=== PATIENT | male | born 1995 | race Caucasian/White ===

== ENCOUNTER 2022-06-24 04:44 | Emergency (ER) | payer OTHER, SELFPAY ==
[2022-06-24 04:46] VITALS: BP 142/112; PULSE 91; RESP 16; TEMP 36.6; O2SAT 98; BMI 36.9
--- NOTE | 2022-06-24 04:51 | EKG12_ITS ---
Test Reason : DYSRHYTHMIA Blood Pressure : / mmHG Vent. Rate : 092 BPM Atrial Rate : 092 BPM P-R Int : 162 ms QRS Dur : 100 ms QT Int : 372 ms P-R-T Axes : 018 052 046 degrees QTc Int : 460 ms Normal sinus rhythm Normal ECG Confirmed by AMILCAR FRANCIS, FLO ([id number]), manager editorial KEN MCLEAN ([id number]) on 06/27/2022 7:53:58 AM Referred By: CHLOE Confirmed By:FLO FITZGERALD MD
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
[2022-06-24 05:02] LABS: Absolute Lymphocyte Count 1.86 X10^3/uL (0.83-4.51); Absolute Neutrophil Count 12.7 X10^3/uL (2.0-7.7); Basophil# 0.04 X10^3/uL; Basophil% 0.3 % (0-1); Eosinophil# 0.02 X10^3/uL; Eosinophils% 0.1 % (0-5); Hematocrit 46.5 % (40-54); Hemoglobin 15.6 g/dL (13.0-16.5); Lymphocyte # 1.86 X10^3/ul (0.83-4.51); Lymphocyte % 11.9 % (19-41); Mean Corp Hgb Conc 33.5 g/dL (32-36); Mean Corpuscular Hgb 28.8 pg (27.0-32.0); Mean Platelet Vol. 9.8 fl (6.2-12.0); Monocyte# 0.83 X10^3/uL; Monocyte% 5.3 % (0-10); NRBC Flagged by Analyzer 0 % (0-5); Neutrophil # 12.74 X10^3/uL (2.7-7.7); Neutrophil % 81.9 % (47-70); Platelet Count 242 K/mm3 (150-450); RBC Distribution Width CV 12.9 % (11.6-14.6); RBC Distribution Width SD 39.9 fl (35.1-43.9); Red Blood Count 5.41 M/mm3 (4.6-6.2); White Blood Count 15.6 K/mm3 (4.4-11.0)
[2022-06-24] MEDS: 0.9% Normal Saline 1,000 ML 999 ML IV (05:02)
[2022-06-24] MEDS: fentaNYL 100 MCG/2 ML Ampul 25 MCG IV (05:02)
[2022-06-24] MEDS: Ondansetron 4 MG/2 ML Vial IV (05:02)
[2022-06-24 05:15] LABS: Anion Gap 9 (5-15); BUN 11 mg/dL (7-18); BUN/Creat Ratio 12.2 RATIO (10-20); Calcium,Total 7.9 mg/dL (8.5-10.1); Chloride 110 mmol/L (98-107); EST Glomerular Filtration Rate 108 mL/min (>60); Est Glom Filt Rate - Afr Amer 131 mL/min (>60); Estimated Creatinine Clearance 137.72 ml/min; Glucose 105 mg/dL (74-106); Potassium 3.6 mmol/L (3.5-5.1); Sodium Level 142 mmol/L (136-145)
[2022-06-24 05:53] VITALS: BP 141/86; PULSE 99; RESP 23; O2SAT 96
[2022-06-24 06:00] VITALS: BP 144/76; PULSE 101; RESP 23; O2SAT 95
[2022-06-24 06:03] LABS: CPK Total, Creatine Kinase 245 U/L (39-308)
[2022-06-24 07:00] VITALS: BP 145/70; PULSE 101; RESP 20; O2SAT 95
[2022-06-24 07:03] VITALS: BP 145/70; PULSE 101; RESP 25; TEMP 36.6; O2SAT 96
--- NOTE | 2022-06-24 07:09 | NURSING ---
CALLED ANT[facility]LL[facility] FOR AN UPDATE. NO ONE ENROUTE
--- NOTE | 2022-06-24 07:12 | NURSING ---
ANTONELLA LYMAN, CALLED. [facility] WILL BE HERE IN 20 MIN OR LESS
[2022-06-24 07:21] LABS: Bacteria 0 SEEN /hpf (None Seen); Mucous, Urine 0 SEEN /hpf (<or=2+); Red Blood Cells-Urine 0 SEEN /hpf (0-5); Squamous Epithelial Cells - UA 0 SEEN /hpf (0-5); White Blood Cells 0 SEEN /hpf (0-5)
[2022-06-24 07:23] LABS: Color, Urine Yellow (Yellow); Glucose, Dipstick Normal (Normal); Ketone-Dipstick 5 mg/dl (Negative); Leukocyte Esterase-Dipstick Negative /ul (Negative); Nitrite-Dipstick Negative (Negative); Occult Blood-Urine Negative /ul (Negative); Protein-Dipstick 15 mg/dl (Negative); Specific Gravity, Urine 1.015 (1.002-1.030); Urine Bilirubin Dipstick Negative (Negative); Urine Clarity Clear (Clear); Urine Urobilinogen Normal (Normal)
[2022-06-24 12:21] LABS: Amphetamine Urine VISTA NEGATIVE (<1000 ng/mL); Barbiturate Urine VISTA NEGATIVE (< 200 ng/mL); Benzodiazepine Urine VISTA NEGATIVE (< 200 ng/mL); Cocaine Urine VISTA NEGATIVE (< 300 ng/mL); Ecstacy Urine VISTA NEGATIVE (< 500 ng/mL); Methadone Urine VISTA NEGATIVE (< 300 ng/mL); PCP Urine VISTA NEGATIVE (< 25 ng/mL); THC Urine VISTA NEGATIVE (< 50 ng/mL); Vista UDS pH Range 5
== END 2022-06-24 07:31 | disposition short-term general hospital (02) ==
LOC: ED 05:46
PROVIDERS: Emergency Provider Student in an Organized Health Care Education/Training Program; Visit Provider Student in an Organized Health Care Education/Training Program
DX: S01.01XA Laceration without foreign body of scalp, initial encounter (principal); F10.129 Alcohol abuse with intoxication, unspecified; T79.7XXA Traumatic subcutaneous emphysema, initial encounter; D72.829 Elevated white blood cell count, unspecified; M25.551 Pain in right hip; S20.229A Contusion of unspecified back wall of thorax, initial encounter; K04.7 Periapical abscess without sinus; V86.55XA Driver of 3- or 4- wheeled all-terrain vehicle (ATV) injured in nontraffic accident, initial encounter; S09.90XA Unspecified injury of head, initial encounter; Y90.6 Blood alcohol level of 120-199 mg/100 ml
CPT/HCPCS: 70450; 71260; 72125; 74177; 80048; 80307; 81001; 82077; 82550; 85025; 85610; 93005; 96361; 96374; 96375; 99285; Q9967; J2405